=== PATIENT | female | born 1965 | race Caucasian/White ===

== ENCOUNTER 2019-06-10 12:05 | Outpatient (CLI) | payer SELFPAY ==
--- NOTE | ~2019-06-10 | XR_ITS ---
EXAMINATION: XR chest 2V DATE: 06/10/2019 14:30 INDICATION: Arthritis, unspecified. TECHNIQUE: Frontal and lateral views of the chest were obtained. COMPARISON: Chest CT 04/29/2012 FINDINGS: The chest demonstrates clear lungs without pneumonia, pleural effusion, or pneumothorax. Th e heart size is normal. IMPRESSION: 1. No acute cardiopulmonary disease. Reviewed, dictated and finalized at location A. MANAGEMENT AGENT
[2019-06-10 14:05] LABS: Hematocrit 46.7 % (37.0-47.0); Hemoglobin 14.9 g/dL (12.0-15.0); Mean Corpuscular HGB Conc 31.9 g/dl (32-36); Mean Corpuscular Hemoglobin 27.2 pg (26-34); Mean Corpuscular Volume 85.2 fl (80-100); Mean Platelet Volume 8.5 fl (7.4-10.4); Platelet Count Result 416 k/mm3 (150-375); Red Blood Count 5.48 M/mm3 (4.2-5.4); Red Cell Distribution Width 16.1 % (11.5-14.5); White Blood Count 12.4 K/mm3 (4.5-10.0)
[2019-06-10 14:17] LABS: Alanine Aminotransferase 13 U/L (4-35); Albumin Level 4.3 g/dL (3.5-5.1); Alkaline Phosphatase 94 U/L (38-126); Aspartate Amino Transferase 19 U/L (14-36); Bilirubin,Total 0.6 mg/dL (0.2-1.3); Blood Urea Nitrogen 18 mg/dL (7-17); Calcium 9.5 mg/dL (8.4-10.2); Carbon Dioxide 28 mmol/L (22-30); Chloride 96 mmol/L (98-107); Estimated Glomerular Filt Rate > 60; Glucose 129 mg/dL (65-105); Potassium 4.3 mmol/L (3.4-5.0); Sodium 136 mmol/L (137-145)
[2019-06-10 14:20] LABS: Rheumatoid Factor 12.7 IU/ML (<12)
[2019-06-10 14:56] LABS: HIV 1/2 Ab P24 Ag Result Negative (Negative)
[2019-06-10 15:13] LABS: Erythrocyte Sedimentation Rate 7 mm/hr (0-20)
[2019-06-13 21:50] LABS: ANCA Screen Negative (Negative)
[2019-06-14 21:14] LABS: Anti Cyclic Citrullinated Pept >250 Units (<20)
[2019-06-15 19:13] LABS: Angiotensin Converting Enzyme 28 U/L (9-67)
== END 2019-06-10 12:06 | disposition home or self-care (01) ==
PROVIDERS: PCP Family Medicine; Visit Provider Family Medicine
DX: I77.6 Arteritis, unspecified (principal); R53.83 Other fatigue; H15.009 Unspecified scleritis, unspecified eye
CPT/HCPCS: 36415; 71046; 80053; 82164; 85027; 85652; 86021; 86038; 86039; 86200; 86430; 86703; G0432